=== PATIENT | male | born 1990 | race Two or more races ===

== ENCOUNTER 2021-10-09 15:12 | Emergency (ER) | payer OTHER ==
[~2021-10-09] VITALS: Ht 170.2 cm; Wt 93.0 kg
[2021-10-09 15:21] VITALS: BP 151/75
--- NOTE | 2021-10-09 15:56 | NUR ---
31 Y/O MALE BIB SELF C/O "BURNING AND PRESSURE" IN THE RIGHT SIDE OF THE HEAD RADIATING TOWARDS THE NECK 10/08. DENIES TRAUMA , LOC, STATES THEY FEEL NAUSEATED. DENIES ANY VISION CHANGES. STATES THEY WANT A HEAD CT SCAN [facility]: HYPERTHYROIDISM, HYPERCHOLESTEROL
[2021-10-09] MEDS ORDERED: METOCLOPRAMIDE 10 MG TAB PO ONE (16:05)
[2021-10-09] MEDS ORDERED: KETOROLAC 60 MG/2 ML VIAL IM ONE (16:05)
[2021-10-09] MEDS ORDERED: ACETAMINOPHEN EXTRA STRENGTH 500 MG TAB PO ONE (16:05)
--- NOTE | 2021-10-09 19:24 | NUR ---
Pt report given to EUGENIA GOODWIN. Transfer of care at this time.
--- NOTE | 2021-10-09 19:35 | NUR ---
REPORT RECEIVED FROM KACIE CISNEROS RN
[2021-10-09] MEDS ORDERED: METO-486 PO (19:43)
[2021-10-09] MEDS ORDERED: IBUP-2213 PO (19:43)
[2021-10-09 19:52] VITALS: BP 117/72
--- NOTE | 2021-10-09 19:52 | NUR ---
Patient discharged with v/s stable. Written and verbal after care instructions given and explained. Patient alert, oriented and verbalized understanding of instructions. Ambulatory with steady gait. All questions addressed prior to discharge. ID band removed. Patient advised to follow up with PMD. Rx of IBUPROFEN METOCLOPRAMIDE HCI given. Patient educated on indication of medication including possible reaction and side effects. Opportunity to ask questions provided and answered.
== END 2021-10-09 19:52 | disposition home or self-care (01) ==
LOC: MED 15:12
DX: G43.909 Migraine, unspecified, not intractable, without status migrainosus (principal); E05.90 Thyrotoxicosis, unspecified without thyrotoxic crisis or storm; F41.9 Anxiety disorder, unspecified; Z79.899 Other long term (current) drug therapy
CPT/HCPCS: 70450; 96372; 99285; J1885; J8597